=== PATIENT | female | born 1985 | race Caucasian/White ===

== ENCOUNTER 2025-03-18 09:53 | Emergency (ER) | payer BC, SELFPAY ==
--- OUTSIDE RECORDS SUMMARY | 2025-03-18 10:00 | XMS_ITS | Clinical Summary ---
Author Organization [facility] Address [address] [place] [address] Care Team Providers Care Principal Java Software Engineer Name Role Phone Needs Pcp, Assignment Primary Care Provider [phone] Source Comments You are receiving this document as you are listed as the primary care provider,follow-up provider, or the patient has been referred to you for consultation.This is in compliance with the Medicare and[facility],which states Providers who transition their patient to another setting of careor provider of care or refers their patient to another provider of care shouldprovide summary care record for each transition of care or referral. [facility] Allergies No known active allergies Medications DRUG NOT IN COMPUTER LW Comment:Record drug name/strength/fo rm LW Addl Instr: control pill 1 Active ibuprofen (AKA MOTRIN) 200 MG tablet Take 1-2 tablets by mouth 3 times daily. LW Addl Instr:Take with food. 1 Active oxyCODONE-aceta minophen (PERCOCET) 5-325 MG tablet Take 1-2 tablets by mouth every 4 hours as needed for Pain. Maximum 12 tablets/24 hours 30 tablet 0 4 Active Additional Information Patient not taking.Reported on 01/13/2020 Active Problems Problem Noted Date Diagnosed Date Closed nondisplaced fracture of cuboid bone of l eft foot 01/13/2020 Family History Relation Name Status Comments Father Alive Mother Alive Social History Tobacco Use Types Packs/Day Years Used Date Smoking Tobacco: Never Comments No Sex and Gender Information Value Date Recorded Sex Assigned at Not on file Legal Sex Female 5:55 AM CDT Gender Identity Not on file Sexual Orientation Not on file Last Filed Vital Signs Vital Sign Reading Time Taken Comments Blood Pressure 132/75 01/09/2014 5:01 PM CDT Pulse 87 01/09/2014 5:01 PM CDT Temperature 36.6 C (97.9 F) 03/03/2020 3:23 PM CDT Respiratory Rate 17 01/09/2014 11:5 3 AM CDT Oxygen Saturation 97% 01/09/2014 5:01 PM CDT Inhaled Oxygen Concentration - - Weight 121.9 kg (268 lb 12.8 oz) 01/13/2020 8:28 AM CDT Height 170.2 cm (5' 7) 01/13/2020 8:28 AM CDT Body Mass Index 42.1 01/13/2020 8:28 AM CDT Plan of Treatment Health Maintenance Due Date Last Done Comments Cervical Cancer Screening Due 1986 Hep C Screening (Preventive Services) 1986 HIV Screening (Preventive Services) 2002 Adult Preventive Visit 2004 HepB Vaccine (1) 2005 COVID-19 Vaccine ( season) 2025 03/12/2022, 05/08/2021, 10/23/2020, Additional history exists Influenza Vaccine (#1) 2025 2, 05/07/2021, 05/06/2020, Additional history exists DTaP/Tdap/Td Vaccine (10 - Tdap) 08/16/2029 08/16/2019, 06/08/2017, 01/24/2011, Additional history exists Zoster/Shingles Vaccine (1 of 2) 2036 Hib Vaccine Completed 11/10/1989, 02/01/1989 IPV (Polio) Vaccine Completed 02/26/1991, 02/22/1988, 04/10/1987, Additional history exists MCV4 Vaccine Aged Out 02/23/2005 No longer eligi ble based on patient's age to complete this topic Pneumococcal Vaccine Aged Out 02/23/2005 No long er eligible based on patient's age to complete this topic HepA Vaccine Aged Out 02/12/2007, 02/20/2006 No lo nger eligible based on patient's age to complete this topic HPV Vaccine Completed 04/01/2011, 11/25, 05/19/2008 Meningococcal B Vaccine Aged Out No l onger eligible based on patient's age to complete this topic Insurance [facility] Care Teams Principal Java Software Engineer Relationship Specialty Start Date End Date Needs Pcp, [place] [address] PCP - General 01/09/14
--- OUTSIDE RECORDS SUMMARY | 2025-03-18 10:00 | XMS_ITS | Clinical Summary ---
Author Organization [employer] [place] [facility] Address [address] [place] [address] Care Team Providers Care Patient Financial Advocate Name Role Phone Cynthia, Freda Blackmon MD Primary Care Provider Gurdeep Wateramn MD Unavailable [phone] Valencia Gilmore RN Unavailable [phone] Unavailable [phone] Salina Wood NP Unavailable [phone] Allergies Active Allergy Reactions Criticality Noted Date Comments Nsaids (Non-Steroidal Anti-Inflammatory Drug) Other - Describe In Comment Field 10/06/2022 H/o poly-n-y gastric bypass. AVOID NSAIDs and aspirin due to risk of gastric and/or G-J anastomotic ulcers. If Oralia must be on short course of NSAIDs or aspirin, use enteric coated if possible and use PPI // Kylah Marti RN, Bariatric Nurse Clinician, [facility] 10/06/2022 Medications pedi multivit no.25-folic acid (Children's Chewable Multivitmn) 300 mcg chewIndications :S/P gastric bypass Chew 1 Tablet by mouth two times daily. 0 10/12/19 23 Active cyanocobalamin (VITAMIN B12) 1,000 mcg sublingual tabletIndicatio ns:S/P gastric bypass Place 1 Tablet (1,000 mcg) under the tongue once daily. Active calcium citrate-vitamin D3, 315 mg-250 units, (CITRACAL WITH VITAMIN D) 315 mg-6.25 mcg (250 unit) tab tablet Take 2 Tablets by mouth two times daily with meals. 0 11/09/19 23 Active cholecalciferol , Vitamin D3, (Vitamin D-3) 5,000 unit tab tablet Take 1 Tablet (5,000 units) by mouth once daily. 0 11/09/19 23 Active DULoxetine (CYMBALTA) 20 mg Delayed-release capsuleIndicati ons:Anxiety Take 1 Capsule (20 mg) by mouth once daily. 90 Capsule 3 07/31/19 25 Active nystatin 100,000 unit/gram creamIndication s:Yeast infection of the skin Apply topically to affected area(s) two times daily. 30 g 5 07/31/19 25 Active naltrexone 50 mg tabletIndicatio ns:S/P gastric bypass,Overweig ht (BMI 25.0-29.9),Hx of obesity Take 1 Tablet (50 mg) by mouth once daily. 90 Tablet 11/29/19 25 Active SUMAtriptan (IMITREX) 50 mg tabletIndicatio ns:Migraine without aura and without status migrainosus, not intractable Take 1 Tablet (50 mg) by mouth every 2 hours if needed for Migraine. Give at minimum 2hrs apart. Max Dose: 200mg per 24hrs. 10 Tablet 5 03/09/20 25 Active buPROPion (WELLBUTRIN XL) 300 mg Extended-Releas e tabletIndicatio ns:S/P gastric bypass,Overweig ht (BMI 25.0-29.9),Hx of obesity TAKE 1 TABLET(300 MG) BY MOUTH DAILY 90 Tablet 03/11/20 25 Active SUMAtriptan (IMITREX) 50 mg tabletIndicatio ns:Migraine without aura and without status migrainosus, not intractable Take 1 Tablet (50 mg) by mouth every 2 hours if needed for Migraine. Give at minimum 2hrs apart. Max Dose: 200mg per 24hrs. 10 Tablet 3 01/04/20 23 025 Discontinued(Re order (E-cancel not sent)) buPROPion 300 mg Extended-Releas e tabletIndicatio ns:S/P gastric bypass,Overweig ht (BMI 25.0-29.9),Hx of obesity TAKE 1 TABLET(300 MG) BY MOUTH DAILY 90 Tablet 11/16/19 25 025 Discontinued SUMAtriptan (IMITREX) 50 mg tabletIndicatio ns:Migraine without aura and without status migrainosus, not intractable Take 1 Tablet (50 mg) by mouth every 2 hours if needed for Migraine. Give at minimum 2hrs apart. Max Dose: 200mg per 24hrs. 10 Tablet 03/09/20 25 025 Discontinued(Re order (E-cancel not sent)) Active Problems Problem Noted Date Diagnosed Date S/P robotic gastric bypass by Dr. Waterman 3 Abnormal uterine bleeding (AUB) 07/25/2022 Closed nondisplaced fracture of cuboid bone of l eft foot 01/13/2020 10/03/2022 HTN (hypertension) 03/19/2015 Resolved Problems Problem Noted Date Diagnosed Date Resolved Date Morbid obesity with BMI of 40.0-44.9, adult 10/04/2022 07/31/2024 Encounter for supervision of normal in third trimester 04/09/2019 07/21/2022 02/27/2019 07/21/2022 Overview (09/09/2019): Estimated Date of Delivery: None noted. 10/06/2019 Patient's last menstrual period was 12/30/2018. Last Tdap- 08/16/2019 Last Flu vaccine- 04/09/2019 Glucose (GTT) result- Component Latest Ref Rng & Units 08/16/2019 HEMOGLOBIN 12.0 - 16.0 g/dL 11.0 (L) MCV 80 - 100 fL 87 GLUCOSE,GESTATIONAL 65 - 139 mg/dL 94 20 week US: FINDINGS: Sonographic imaging demonstrates a single living intrauterine gestation. Fetus demonstrates a regular cardiac rate of 161 beats per minute. Fetus has a vertex position. The placenta lies posteriorly without evidence of placenta previa. Amniotic fluid volume appears normal. Single deepest vertical pocket: 3.9 cm. The cervix is closed and measures 3.4 cm in length. The composite ultrasound gestational age is calculated at 21 weeks 0 days with an estimated sonographic due date of 10/25/2019. No Known Allergies OB History Para Term AB Living 2 1 1 0 0 1 SAB TAB Ectopic Multiple Live Births 0 0 0 0 1 # Outcome Date GA Lbr Pavel/2nd Weight Sex Delivery Anes PTL Lv 2 Current 1 Term 09/02/17 41w1d 3.43 kg (7 lb 9 oz) F Vag EPIDURAL N BILL Name: Nancy Create lab flowsheet for OB labs- future orders Past Medical History: . Date Attention deficit disorder without mention of hyperactivity no meds Irregular menstrual cycle Past Surgical History: . Laterality Date APPENDECTOMY 2014 HIP SURGERY Right 2013 labral tear OTHER 2009 moved upper jaw forward WISDOM TEETH EXTRACTION age 17 No data on file. Problems (from 02/26/19 to present) No problems associated with this episode. ALEX Humphrey.....02/27/2019 9:32 AM 02/14/2017 02/27/2019 Overview (08/04/2017): Estimated Date of Delivery: 08/25/17 Patient's last menstrual period was 11/18/2016 (exact date). Last Tdap- 06/08/2017 Last Flu vaccine- 03/17/2017 No Known Allergies Obstetric History T0 L0 SAB0 TAB0 Ectopic0 Multiple0 Live Births0 # Outcome Date GA Lbr Pavel/2nd Weight Sex Delivery Anes PTL Lv 1 Current Component Latest Ref Rng & Units 02/03/2017 02/03/2017 02/03/2017 9:03 AM 9:03 AM 9:03 AM ANTIBODY SCREEN Negative Negative SPECIMEN EXPIRATION DATE/TIME 02/06/17 23:59 HEMOGLOBIN 12.0 - 16.0 g/dL 12.3 MCV 80 - 100 fL 85 RUBELLA IGG ANTIBODY Positive 22.30 HEMOGLOBIN A1C SCREENING <6.4 % 4.8 ABORH A Rh Positive HIV-1/HIV-2 ANTIBODY Non-Reactive Non-Reactive TREPONEMA PALLIDUM Negative Negative Component Latest Ref Rng & Units 07/28/2017 HEMOGLOBIN 12.0 - 16.0 g/dL 10.8 (L) MCV 80 - 100 fL 87 Culture No Group B Streptococcus isolated. Past Medical History: Diagnosis Date Attention deficit disorder without mention of hyperactivity no meds Irregular menstrual cycle Past Surgical History: Procedure Laterality Date APPENDECTOMY 2014 HIP SURGERY Right 2013 labral tear OTHER 2009 moved upper jaw forward WISDOM TEETH EXTRACTION age 17 No data on file. 1st Problems (from 02/03/17 to present) No problems associated with this episode. Mago Stock, RNC.....04/14/2017 9:46 AM BMI 40.0-44.9, adult 03/19/2015 025 Encounters Date Type Department Care Team Description 03/10/2025 Refill [facility] [address] [facility] [place] [address] Salina Wood, LEADERSHIP COACH Refill Request (Bupropion) 03/07/2025 Refill [facility] [address] [place] [address] Freda Marie MD Refill Request (Sumatriptan) 01/05/2025 Orders Only [facility] Scanner 1 scan: (1-Ord) DA DERMATOLOGY, EXCISION, 01/05/2025 01/03/2025 Refill [facility] [address] [place] [address] Salina Wood, LEADERSHIP COACH Refill Request (Naltrexone) from Last 3 Months Immunizations Immunization Administration Dates Next Due COVID-19 VACCINE SPIKEVAX (M ODERNA 50MCG/0.5ML) 12YO+ PFS 07/31/2023 COVID-19 vaccine (Moderna 100mcg/0.5mL) PF, MDV 05/08/2021 COVID-19 vaccine (Pfizer-Bio NTech 30mcg/0.3mL) PF, MDV 10/23/2020,10/02/2020 DT (Age < 7 years) 10/15/1998 DTP 02/26/1991, 8,07/28/1987,03/26,01/22/1987 HIB HbOC (HibTITER) 11/10/1989,02/01/1989 HPV 9 (Gardasil 9) 04/01/2011,12/15/2010 Hepatitis A (Adult) 02/12/2007,02/20/2006 Hepatitis B (Peds) 02/05/1998,09/26/1997, 998 Human Papilloma Virus Vaccine 12/15/2010, 008 07/19/2008 INFLUENZA, IIV3 PF (AGE >= 6 MO) 05/06/2024 Influenza, IIV3 (Age >=3 years) 05/19/2008 Influenza, IIV4 04/13/2023,,05/06/2020,03/26,03/17/2017,04/05/2016 Influenza,CCIIV4 PRESERV FREE 03/12/2022 MMR 08/21/1997,02/22/1988 Meningococcal Vaccine (Menomune) 02/23/2005 Oral Polio Vaccine 02/26/1991, 8,04/10/1987,12/26 Pneumococcal Poly,23-Valent (Pneumovax) 02/23/2005 Tdap 08/16/2019,06/08/2017,01/24/2011 Typhoid (injectable) 02/20/2006 Family History Medical History Relation Name Comments Cancer Father skin, melanoma Good Health Father Cancer-prostate Maternal Grandfather Good Health Mother Skin cancer Mother Anesthesia Problem No Family History Blood Disease No Family History Relation Name Status Comments Father Alive Maternal Grandfather Alive Maternal Grandmother Alive Mother Alive Paternal Grandfather Alive Paternal Grandmother Alive Social History Tobacco Use Types Packs/Day Years Used Date Smoking Tobacco: Never Smokeless Tobacco: Never Tobacco Cessation:Counseling Given: Yes Alcohol Use Standard Drinks/Week Comments Yes 0 (1 standard drink = 0.6 oz pur e alcohol) a glass of wine a week PHQ-2 Answer Date Recorded PHQ-2 TOTAL SCORE 0 07/31/2024 Social Connections Answer Date Recorded Do you often feel lonely or isolated from those around you? 0 12/20/2023 Financial Resource Strain Answer Date R ecorded Difficulty of Paying Living Expenses 3 12/20/2023 Difficulty of Paying Living Expenses Not on file 12/20/2023 Food Insecurity Answer Date Recorded Do you worry your food will run out before you are able to buy more? 1 12/20/2023 Transportation Needs Answer Date Record ed Does lack of transportation keep you from medica l appointments? 1 12/20/2023 Does lack of transportation keep you from work, meetings or getting things that you need? 1 12/20/2023 Housing Stability Answer Date Recorded What is your housing situation today? 1 12/20/2023 Utilities Answer Date Recorded Do you have trouble paying f or utilities (for example, heat, electricity, water, phone)? 1 12/20/2023 Comments No Sex and Gender Information Value Date Recorded Sex Assigned at Not on file Legal Sex Female 5:27 AM WHEEL FILLER Gender Identity Not on file Sexual Orientation Not on file Occupation Industry Job Start Date Job End Date Not on file Not on file Not on file Not on file Obstetrics History Para Term AB IAB SAB Ectopic Multiple Livin g Live Births 2 2 2 2 2 Date Outcome GA Total Labor Labor/2nd/3rd Weight Sex Type Anes PTL Bill A1 A5 Name Clin 2017 Term 41w 1d 3.43 kg (7 lb 9 oz) F Vag Epidur al N Livin g Nancy Tappe r Complications:None Delivery Location:[place] 2019 Term 40w 2d 4.03 kg (8 lb 14 oz) F Vag None N Livin g Islay Tappe r Complications:None Delivery Location:[facility] Last Filed Vital Signs Vital Sign Reading Time Taken Comments Blood Pressure 128/84 08/26/2024 1:25 PM WHEEL FILLER Pulse 81 08/26/2024 1:25 PM WHEEL FILLER Temperature 36.8 C (98.3 F) 10/06/2022 8:22 AM CDT Respiratory Rate 18 10/06/2022 8:22 AM CDT Oxygen Saturation 100% 08/26/2024 1:25 PM WHEEL FILLER Inhaled Oxygen Concentration - - Weight 79.8 kg (176 lb) 10/01/2024 8:00 AM CDT Height 171.5 cm (5' 7.52) 10/01/2024 8:00 AM CD T Body Mass Index 27.14 10/01/2024 8:00 AM CDT Plan of Treatment Upcoming Encounters Date Type Department Care Team (Late st Contact Info) Description 04/03/2025 9:15 AM CDT Orders Only [facility] [address] [place] [address] Lab, [place] [facility] Maintenance Due Date Last Done Comments COVID-19 vaccine series ( season) 2025 07/31/2023, 03/12/2022, 05/08/2021, Additional history exists Influenza Vaccine (#1) 2025 , 04/13/2023, 03/12/2022, Additional history exists Depression screening for age 12+ 07/31/2025 07/31/2024, 05/27/2024, 04/02/2024, Additional history exists BMI (ht and wt on same day) for age 18+ 10/01/2025 10/01/2024, 09/30/2024, 07/31/2024, Additional history exists Tetanus booster 08/16/2029 08/16/2019, 05/26, 01/24/2011 RSV vaccine for adults or (1 - 1-dose 75+ series) 2061 Hepatitis B series for 19+ Completed 02/05, 09/26/1997, 08/21/1997 Pneumococcal series for age 6-49 Aged Out 02/23/2005 No longer eligible based on patient's age to complete this topic HPV series for age 9-45 Completed 04/01/20 11, 12/15/2010, 12/15/2010, Additional history exists HIV for age 15-65 Completed 03/01/2019, 02/03/2017 Hepatitis C screening for age 18-79 Completed 07/21/2022 Procedures Procedure Name Priority Date/Time Associated Diagnosis Comments SCAN-OPERATIVE/PROC EDURE REPORT 01/05/2025 12:00 AM CDT LC HCV ANTIBODY RFX TO QUANT PCR Routine 07/21/2022 8:40 AM WHEEL FILLER Need for hepatitis C screening test ANTI HIV 1/2 Routine 03/01/2019 2:33 PM CDT Encounter for supervision of other normal in first trimester (HC) from Last 3 Months or Most Recently Relevant to Health Maintenance Results * SCAN-OPERATIVE/PROCEDURE REPORT (01/05/2025 12:00 AM CDT) us Scanner OTHER Final Result * LC HCV ANTIBODY RFX TO QUANT PCR (07/21/2022 8:40 AM WHEEL FILLER) HCV Ab <0.1 0.0 - 0.9 s/co ratio 07/23/2022 5:34 PM WHEEL FILLER [facility] Blood BLOOD SPECIMEN / Unknown Butterfly / Unknown 07/21/2022 8:40 AM WHEEL FILLER 07/21/2022 8:42 AM WHEEL FILLER Narrative [facility]) - 07/23/2022 5:34 PM WHEEL FILLER Performed at: [address] [id number] Account Executive: Geraldo Zaragoza MD, Phone: [phone] Freda Marie MD LABORATORY Final R esult [facility]) [facility] [place] [address], * ANTI HIV 1/2 (03/01/2019 2:33 PM CDT) Pathologist [facility] HIV-1/HIV-2 ANTIBODY Non-Reacti ve Non-Reacti ve 03/01/2019 8:45 PM CDT [facility] TRAL LABORATORY Comment:HIV-1 p24 and HIV-1/ HIV-2 Ab not detected. Blood BLOOD SPECIMEN / Unknown Venipuncture / Unknown 03/01/2019 2:33 PM CDT 03/01/2019 2:33 PM CDT Freda Marie MD SEND OUTS Final R esult [facility] [address] [place] [address], [place] from Last 3 Months or Most Recently Relevant to Health Maintenance Insurance [facility] Advance Directives * Full Code (Latest Code Status on File) Date Activated Date Inactivated Comments 10/06/2022 1:19 AM 10/06/2022 2:33 PM Question Answer Comments Code Status Discussion: Reviewed Preferences * Full Code Date Activated Date Inactivated Comments 10/05/2022 12:14 PM 10/06/2022 1:19 AM Question Answer Comments Code Status Discussion: Not Discussed * Full Code Date Activated Date Inactivated Comments 07/26/2022 6:07 AM 07/26/2022 2:02 PM Question Answer Comments Code Status Discussion: Reviewed Preferences Care Teams Patient Financial Advocate Relationship Specialty Start Date End Date Freda Marie MD PCP - General Family Practice 02/18/19 Gurdeep Waterman MD [address] [id number] Consulting Physician Surgery - General 02/15/22 Valencia Gilmore RN [address] [id number] Copy Center Operator Registered Nurse 02/15/[address] [phone] Svp Chief Marketing Officer/State Federal Relations Deputy Director Learning Strategist 02/15/22 Salina Wood NP [address] [place] [id number] Nurse Practitioner - Family 08/02/23
--- OUTSIDE RECORDS SUMMARY | 2025-03-18 10:00 | XMS_ITS | Clinical Summary ---
Author Organization [facility] Address [address] [place] [address] , [address] [place] [address] Phone Care Team Providers Care Atomizer Assembler Name Role Phone Nini George Conditions or Problems Problem Name Problem Code Onset Date Status Entry Date Provider Comment Standard Description Annotate Trigeminal neuralgia, right 16549919 (SNOMED CT) Active 09/03 Destinee Benitez MD Trigeminal neuralgia Facial neuralgia [id number] (SNOMED CT) Active 09/03 Destinee Benitez MD Facial neuralgia Medications Medication Instructions Start Date Stop Date Generic Name NDC Provider SUMATRIPTAN SUCCINATE 50 MG TABS Take 1 Tablet (50 mg) by mouth every 2 hours if needed for Migraine. Give at minimum 2hrs apart. Max Dose: 200mg per 24hrs. sumatriptan succinate [id number] QIEUSER QIEUSER pedi multivit no.25-folic acid (Children's Chewable Multivit Chew 1 Tablet by mouth two times daily. Children's Chewable Multivit QIEUSER QIEUSER NYSTATIN 810030 UNIT/GM CREA Apply topically to affected area(s) two times daily. nystatin [id number] QIEUSER QIEUSER NALTREXONE HCL 50 MG TABS Take 0.5 Tablets (25 mg) by mouth once daily. Take 1/2 tab for 14 days then increase to full tab. Naltrexone should be stopped 7 days prior to any surgery or with concurrent oral opioids, opioid pain pump, opioid pain patches, opioid buccal films or medical marijuana. naltrexone [id number] QIEUSER QIEUSER DULOXETINE HCL 20 MG CPEP Take 1 Capsule (20 mg) by mouth once daily. duloxetine [id number] QIEUSER QIEUSER cyanocobalamin (VITAMIN B12) 1,[address] 1 Tablet (1,000 mcg) under the tongue once daily. VITAMIN B12 QIEUSER QIEUSER cholecalciferol, Vitamin D3, (Vitamin D-3) 5,000 unit tab ta Take 1 Tablet (5,000 units) by mouth once daily. Vitamin D-3 QIEUSER QIEUSER calcium citrate-vitamin D3, 315 mg-250 units, (CITRACAL WITH Take 2 Tablets by mouth two times daily with meals. CITRACAL WITH QIEUSER QIEUSER BUPROPION HCL ER (XL) 300 MG [id number] Take 1 Tablet (300 mg) by mouth once daily. bupropion hcl [id number] QIEUSER QIEUSER Medications Administered No information available. Allergies, Adverse Reactions, Alerts Allergy Name Reaction Description Start Date Severity Statu s Provider NSAIDS (NON-STEROIDAL ANTI-INFLAMMATORY DRUG) Other - Describe In Comment Field Mild Active Poli Castillo Results No information available. Plan of Care Type Date Detail Pending order Follow up Pending order Follow up Pending order MRI-Brain W/O Pending order MRA-Head W/O Procedures Code Procedure Name Date Entry Date [id number] MRI-Brain W/O [id number] MRA-Head W/O CPT-33083 MRA Head W/O CPT-86129 MRI Brain W/O Vital Signs No information available. Immunizations No information available. Advance Directives No information available.
[2025-03-18 10:05] VITALS: BP 151/97; PULSE 75; RESP 16; TEMP 36.8; O2SAT 99; BMI 27.4
[2025-03-18 10:58] LABS: PCR FLU A Negative PCR FLU A (Negative); PCR FLU B Negative PCR FLU B (Negative); SARS PCR* Negative SARS-CoV-2 (Negative)
--- NOTE | 2025-03-18 11:56 | ED.HA ---
HPI - Headache General Date Seen: 03/18/25 Chief Complaint: Headache/Migraine Stated Complaint: migraine Time Seen by Provider: 03/18/25 11:31 Source: patient Mode of arrival: ambulatory Limitations: no limitations History of Present Illness HPI Narrative: Patient is a 39-year-old female presenting to the emergency department for headache. She states this morning around 03:00 she developed a migraine that woke her up from sleep. Her migraine is in her frontal headache and radiates to her temporal bone. She states typically her migraines are on top of her head. She does state it is not abnormal for her migraines to a care up from sleep. Typically they will go way when she uses her Imitrex. She did that today with no resolution of her symptoms. Denies weakness, numbness, vision changes, chest pain, shortness of breath, abdominal pain, lightheadedness, this is. Does chest admit to photophobia and phonophobia. Does states she is recently getting over some viral symptoms. Has been having some nausea, hot flashes and chills with that. Has a history of gastric bypass surgery. Related Data Home Medications ?Medication ?Instructions ?Recorded ?Confirmed bupropion HCl 300 mg 24 hr tablet, 300 mg PO DAILY 03/18/25 03/18/25 extended release duloxetine 20 mg capsule,delayed 20 mg PO DAILY 03/18/25 03/18/25 release naltrexone 50 mg tablet 50 mg PO DAILY 03/18/25 03/18/25 sumatriptan succinate 50 mg tablet 50 mg PO migraine 03/18/25 Allergies Allergy/AdvReac Type Severity Reaction Status Date / Time ibuprofen Allergy Unknown Verified 03/18/25 10:08 Review of Systems Status of ROS: Reports: 10 or more systems reviewed and unremarkable except as noted in History and below Exam Narrative: Exam Narrative: Const: Well-nourished, Well-developed, in mild distress Eyes: PERRL, no conjunctival injection, and symmetrical lids HENT: Atraumatic external nose and ears. Moist mucous membranes. Neck: Symmetric, trachea midline, No thyromegaly. CVS: RRR, No murmurs or gallops. Peripheral pulses 2+ and equal in all extremities RESP: Unlabored respiratory effort. Clear to auscultation bilaterally. GI: Nontender/Nondistended, No rebound or guarding. MSK:Extremities w/o deformity, Normal Active ROM Skin: Warm, Dry. No rashes or lesions. Neuro: Normal Muscle tone, Cranial nerves 2-12 grossly intact, normal [id number], normal [id number], normal gait, normal strength 5/5 upper lower extremities bilaterally, normal sensation upper and lower extremities bilaterally, normal rapid alternating movements. Psych: Awake, Alert, & Oriented x3. Appropriate mood and affect. Const: Vital Signs, click to edit/add: Vital Signs - 24 hr 03/18/25 10:05 Temperature 98.2 F Pulse Rate [Pulse Oximeter] 75 Respiratory Rate 16 Blood Pressure [Ri ght Upper Arm] 151/97 H Pulse Oximetry 99 Oxygen Delivery Me thod Room Air Course Vital Signs Vital signs: Initial Vital Signs Temperature 98.2 F 03/18/25 10:05 Temperature Source Temporal Artery Scan 03/18/25 10:05 Pulse Rate 75 03/18/25 10:05 Respiratory Rate 16 03/18/25 10:05 Blood Pressure 151/97 H 03/18/25 10:05 Blood Pressure Mean 115 H 03/18/25 10:05 Blood Pressure Position Sitting 03/18/25 10:05 Pulse Oximetry 99 03/18/25 10:05 Oxygen Delivery Method Room Air 03/18/25 10:05 Vital Signs Temperature 98.2 F 03/18/25 10:05 Pulse Rate 75 03/18/25 10:05 Respiratory Rate 16 03/18/25 10:05 Blood Pressure 151/97 H 03/18/25 10:05 Pulse Oximetry 99 03/18/25 10:05 Oxygen Delivery Method Room Air 03/18/25 10:05 Temperature 98.2 F 03/18/25 10:05 Pulse Rate 75 03/18/25 10:05 Respiratory Rate 16 03/18/25 10:05 Blood Pressure 151/97 H 03/18/25 10:05 Pulse Oximetry 99 03/18/25 10:05 Oxygen Delivery Method Room Air 03/18/25 10:05 Medications Administered Medications: Discontinued Medications Generic Name Dose Route Start Last Admin Trade Name Freq PRN Reason Stop Dose Admin Diphenhydramine HCl 25 mg 03/18/25 11:55 03/18/25 12:22 Diphenhydramine 50 Mg/Ml Inj IVP 03/18/25 11:56 25 mg ONCE ONE Administration Lactated Ringer's 1,000 mls @ 1,000 mls/hr 03/18/25 11:55 03/18/25 13:25 Lactated Ringers 1000 Ml IV 03/18/25 12:54 Infused .Q1H ONE Infusion Ketorolac Tromethamine 15 mg 03/18/25 12:27 03/18/25 12:40 Ketorolac 15 Mg/Ml Inj IVP 03/18/25 12:28 15 mg ONCE ONE Administration Metoclopramide HCl 10 mg 03/18/25 11:55 03/18/25 12:27 Metoclopramide Hcl 5 Mg/Ml Inj IVP 03/18/25 11:56 10 mg ONCE ONE Administration MDM - Headache MDM Narrative Medical decision making narrative: Patient is a 39-year-old female presenting to the emergency department for headache. Differential at this time includes migraine, cluster headache, tension headache, intracranial mass, infection. At this some a do not believe CT scan is necessary as she has history of migraines. She also has a normal neurological exam. Will start with a migraine cocktail to see if it helps with her symptoms. She has had a previous gastric bypass but does states she is allowed to take IV NSAIDs After the medication she is feeling much better and feels safe for discharge. She will be discharged at this time. Lab Data Labs: Lab Results 03/18/25 Range/Units 10:10 SARS-CoV-2 (PCR) Negative SARS-CoV-2 (Negative) Influenza Type A (PCR) Negative PCR FLU A (Negative) Influenza Type B (PCR) Negative PCR FLU B (Negative) Discharge Plan Discharge Clinical Impression: Headache Qualifiers: Headache type: unspecified Headache chronicity pattern: acute headache Intractability: not intractable Qualified Code(s): R51.9 - Headache, unspecified Patient Disposition: Home, Self-Care Condition: Improved Instructions: Acute Headache (DC) Additional Instructions: Take your previous migraine medication as needed. Return to emergency department for new or worsening symptoms. Prescriptions: No Action naltrexone 50 mg tablet 50 mg PO DAILY sumatriptan succinate 50 mg tablet 50 mg PO bupropion HCl 300 mg tablet extended release 24 hr 300 mg PO DAILY duloxetine 20 mg capsule,delayed release(DR/EC) 20 mg PO DAILY Follow Up/Referrals: Freda Marie MD [Primary Care Provider, Family Practice] Stand Alone Forms: [employer] Info Instructions
--- OUTSIDE RECORDS SUMMARY | 2025-03-18 12:19 | XMS_ITS | Clinical Summary ---
Author Organization [facility] Address [address] [place] [address] , [address] [place] [address] Phone Care Team Providers Care Hand Glove Cleaner Name Role Phone Nini George Conditions or Problems Problem Name Problem Code Onset Date Status Entry Date Provider Comment Standard Description Annotate Trigeminal neuralgia, right 38626469 (SNOMED CT) Active 09/03 Destinee Benitez MD Trigeminal neuralgia Facial neuralgia [id number] (SNOMED CT) Active 09/03 Destinee Benitez MD Facial neuralgia Medications Medication Instructions Start Date Stop Date Generic Name NDC Provider SUMATRIPTAN SUCCINATE 50 MG TABS Take 1 Tablet (50 mg) by mouth every 2 hours if needed for Migraine. Give at minimum 2hrs apart. Max Dose: 200mg per 24hrs. sumatriptan succinate [id number] QIEUSER QIEUSER pedi multivit no.25-folic acid (Children's Chewable Multivit Chew 1 Tablet by mouth two times daily. Children's Chewable Multivit QIEUSER QIEUSER NYSTATIN [id number] UNIT/GM CREA Apply topically to affected area(s) two times daily. nystatin [id number] QIEUSER QIEUSER NALTREXONE HCL 50 MG TABS Take 0.5 Tablets (25 mg) by mouth once daily. Take 1/2 tab for 14 days then increase to full tab. Naltrexone should be stopped 7 days prior to any surgery or with concurrent oral opioids, opioid pain pump, opioid pain patches, opioid buccal films or medical marijuana. naltrexone [id number] QIEUSER QIEUSER DULOXETINE HCL 20 MG CPEP Take 1 Capsule (20 mg) by mouth once daily. duloxetine [id number] QIEUSER QIEUSER cyanocobalamin (VITAMIN B12) 1,000 mcg [...] QIEUSER BUPROPION HCL ER (XL) 300 MG [id number] Take 1 Tablet (300 mg) by mouth once daily. bupropion hcl [id number] QIEUSER QIEUSER Medications Administered No information available. [...] Procedures Code Procedure Name Date Entry Date [id number] MRI-Brain W/O [id number] MRA-Head W/O CPT-65148 MRA Head W/O CPT-68682 MRI Brain W/O Vital Signs No information available. Immunizations No information available. Advance Directives No information available.
[2025-03-18] MEDS: LACTATED RINGERS 1000 ML 1,000 ML IV (12:22)
[2025-03-18] MEDS: METOCLOPRAMIDE HCL 5 MG/ML INJ 10 MG IVP (12:27)
[2025-03-18 13:32] VITALS: BP 123/67; PULSE 72; RESP 16; O2SAT 97
== END 2025-03-18 13:55 | disposition home or self-care (01) ==
PROVIDERS: Emergency Provider Student in an Organized Health Care Education/Training Program; PCP Family Medicine
DX: R51.9 Headache, unspecified (principal)
CPT/HCPCS: 87631; 96374; 96375; 99283; 99284; J1200; J1885; J2765; J7120